=== PATIENT | male | born 1985 | race Two or more races ===

== ENCOUNTER 2020-06-26 01:01 | Emergency (ER) | payer OTHER ==
[~2020-06-26] VITALS: Ht 172.7 cm; Wt 74.8 kg
--- NOTE | 2020-06-26 01:05 | NUR ---
PT BIB AMBUL LOW BLOOD SUGAR IV IN FIELD LT AC 18G SALINE NAKIA BS 33 GAVEIV D10 250ML AND ORAL GLUCOSE 25 G REPEAT BS205 ER MD TO EXAM
[2020-06-26 01:11] VITALS: BP 133/86
--- NOTE | 2020-06-26 01:19 | NUR ---
BS 149 RN ZOILA SANTOS
--- NOTE | 2020-06-26 01:22 | Emergency Room Report ---
History of Present Illness General Chief Complaint: Abnormal Labs Source: Patient Present Illness HPI This is a 35-year-old male with a history of insulin-dependent diabetic. He presents with chief complaint of hypoglycemia. Patient said that he took his insulin this morning but has not eaten anything since the morning because he is homeless. He said he felt shaky and felt that his sugar was low. He called 911. EMS said his blood sugar was 33. They gave him oral glucose and D50. Patient felt better now. Denies any fever chills but no nausea no vomiting. Denies any drug use. 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 COVID-19 Screening: Negative COVID-19 COVID-19 Testing Source: [facility] Patient History Past Medical History: see triage record, old chart reviewed, DM Past Surgical History: other Pertinent Family History: none Social History: Denies: smoking Immunizations: other Reviewed Nursing Documentation: PMH: Agreed; PSxH: Agreed Nursing Documentation-PMH Hx Asthma: Yes Hx Diabetes: Yes History Of Psychiatric Problem: Yes - BIPOLAR, SCHIZOPHRENIA, DEPRESSION Review of Systems Eye: Denies: eye pain, blurred vision ENT: Denies: ear pain, nose congestion, throat swelling Respiratory: Denies: cough, shortness of breath Cardiovascular: Denies: chest pain, palpitations Gastrointestinal: Denies: abdominal pain, diarrhea, nausea, vomiting Musculoskeletal: Denies: back pain, joint pain Skin: Denies: rash Neurological: Denies: headache, numbness Endocrine: Denies: increased thirst, increased urine Hematologic/Lymphatic: Denies: easy bruising All Other Systems: negative except mentioned in HPI Physical Exam Vital Signs Date Time Temp Pulse Resp B/P (MAP) Pulse Ox O2 Delivery O2 Flow Rate FiO2 06/26/20 01:02 97.9 88 20 136/83 (100) 96 Room Air Vitals normal Sp02 EP Interpretation: reviewed, normal General Appearance: well appearing, no apparent distress, alert Head: normocephalic, atraumatic Eyes: bilateral eye PERRL, bilateral eye EOMI ENT: hearing grossly normal, normal pharynx Neck: full range of motion, supple, no meningismus Respiratory: chest non-tender, lungs clear, normal breath sounds Cardiovascular #1: regular rate, rhythm, no murmur Gastrointestinal: normal bowel sounds, non tender, no mass, no organomegaly, no bruit, non-distended Musculoskeletal: back normal, normal range of motion, gait/station normal Psychiatric: mood/affect normal Medical Decision Making Homeless Attestation I, The treating physician, Dr Bryan Nath, has assessed and agrees that patient is medically stable for discharge to an outpatient disposition. Diagnostic Impression: Primary Impression: Hypoglycemia due to insulin ER Course This patient presents with hypoglycemia. Patient was fed here and Accu-Chek has been stable. Will discharge in the morning. Last Vital Signs Date Time Temp Pulse Resp B/P (MAP) Pulse Ox O2 Delivery O2 Flow Rate FiO2 06/26/20 01:11 98.0 95 18 133/86 98 Room Air Status: improved Disposition: HOME, SELF-CARE Condition: Stable Additional Instructions: Follow-up with In 7 days. Eat a regular diet. Return if symptoms worsen. Bryan Nath MD Jun 26, 2020 01:22
--- NOTE | 2020-06-26 05:06 | NUR ---
PT ACCU CK BS 158 AOX4 RESP EVEN
--- NOTE | 2020-06-26 05:07 | NUR ---
IV DCD SITE WNL PT DISCHGED WITH AFTERCARE TO WAITING ROOM TO WAIT FOR BUS STABLE
[2020-06-26 05:13] VITALS: BP 133/84
== END 2020-06-26 05:22 | disposition home or self-care (01) ==
LOC: EDBD 01:01 → EMR 02:10
DX: E11.649 Type 2 diabetes mellitus with hypoglycemia without coma (principal); T38.3X5A Adverse effect of insulin and oral hypoglycemic [antidiabetic] drugs, initial encounter; J45.909 Unspecified asthma, uncomplicated; Z79.4 Long term (current) use of insulin; Y92.9 Unspecified place or not applicable; Z88.2 Allergy status to sulfonamides; Z88.8 Allergy status to other drugs, medicaments and biological substances; Z59.0 Homelessness
CPT/HCPCS: 82962; Z7502; 99282